=== PATIENT | female | born 1990 | race Caucasian/White ===

== ENCOUNTER 2018-12-17 19:39 | Emergency (ER) | payer OTHER ==
[~2018-12-17] VITALS: Ht 149.9 cm; Wt 52.2 kg
[~2018-12-17 19:39] MED LIST: ATIVAN1 MG PO; PERCOCET 5-3251 EACH PO; VICODIN ES 7.51 EACH PO; VISTARIL 25 MG25 M1 PO
[2018-12-17 19:50] VITALS: BP 131/77
[2018-12-17] MEDS ORDERED: XANAX1 MG PO (19:57)
[2018-12-17] MEDS ORDERED: ADDERALL 10 MG10 MG PO (19:58)
[2018-12-17] MEDS ORDERED: IBUPROFEN 400400 M2 PO (20:59)
== END 2018-12-17 22:02 | disposition home or self-care (01) ==
LOC: ER 19:39
DX: G89.29 Other chronic pain (principal); M54.6 Pain in thoracic spine; J02.9 Acute pharyngitis, unspecified; B33.8 Other specified viral diseases; F41.9 Anxiety disorder, unspecified; J45.909 Unspecified asthma, uncomplicated; F17.210 Nicotine dependence, cigarettes, uncomplicated; Z88.0 Allergy status to penicillin; Z88.6 Allergy status to analgesic agent

== ENCOUNTER 2020-01-16 06:35 | Emergency (ER) | payer OTHER ==
[~2020-01-16] VITALS: Ht 149.9 cm; Wt 59.0 kg
[~2020-01-16 06:35] MED LIST changes: +ADDERALL 10 MG10 MG PO; +IBUPROFEN 400400 M2 PO; +XANAX1 MG PO
[2020-01-16] MEDS ORDERED: PERCOCET 5-3251 EACH PO (09:29)
[2020-01-16] MEDS ORDERED: VALIUM5 MG PO (09:36)
[2020-01-16 09:39] LABS: URINE BILIRUBIN NEGATIVE (Negative); URINE BLOOD 1+ (Negative); URINE CLARITY CLOUDY; URINE COLOR YELLOW; URINE GLUCOSE-RANDOM* NEGATIVE (Negative); URINE KETONES NEGATIVE (Negative); URINE LEUKOCYTES-REFLEX NEGATIVE (Negative); URINE NITRITE-REFLEX NEGATIVE (Negative); URINE PROTEIN (DIPSTICK) NEGATIVE (Negative); URINE SPECIFIC GRAVITY >= 1.030 (1.005-1.035); URINE UROBILINOGEN 0.2 E.U./dl (0.2-1.0)
[2020-01-16 09:51] LABS: AMORPHOUS URATES Moderate /LPF (None Seen); BACTERIA-REFLEX 1-9 Few /HPF (None Seen); CASTS None Seen /LPF (None Seen); MUCUS 0-3 Light strn/LPF (None Seen); SQUAMOUS 4-10 Moderate /LPF (0-3); URINE RBC 0-2 Rare /HPF (0-2); URINE WBC-REFLEX 0-5 Rare /HPF (0-5)
[2020-01-16 10:05] VITALS: BP 111/70
[2020-01-17 02:07] LABS: HIV ANTIBODY Non Reactive (Non Reactive)
[2020-01-17 14:08] LABS: HSV 2 IgG 6.27 index (0.00-0.90)
[2020-01-19 22:07] LABS: SYPHILIS AB Non Reactive (Non Reactive)
--- NOTE | 2020-01-20 01:02 | NUR ---
PATIENT CALLED THIS ER REGARDING HER TEST RESULTS AFTER RECEIVING A VOICEMAIL. WHEN PATIENT LOOKED UP IN CALL LOG, HER TEST RESULTS FOR CHLAMYDIA AND GONORRHEA WERE NEGATIVE. PATIENT ENDED PHONE CALL. UPON LOOKING INTO CHART, PATIENT HAS POSITIVE TEST RESULTS FOR HERPES. CALLED CELL PHONE NUMBER LISTED IN ADMISSION DEMOGRAPHICS AND LEFT MESSAGE FOR PATIENT TO RETURN PHONE CALL. AWAITING PATIENT TO CALL BACK.
== END 2020-01-16 10:05 | disposition home or self-care (01) ==
LOC: ER 06:35
PROVIDERS: Emergency Medicine Emergency Medical Services
DX: M54.5 Low back pain (principal); Z20.2 Contact with and (suspected) exposure to infections with a predominantly sexual mode of transmission; N93.9 Abnormal uterine and vaginal bleeding, unspecified; F41.9 Anxiety disorder, unspecified; J45.909 Unspecified asthma, uncomplicated; Z79.899 Other long term (current) drug therapy; Z88.6 Allergy status to analgesic agent; Z88.8 Allergy status to other drugs, medicaments and biological substances; Z88.0 Allergy status to penicillin; V89.2XXA Person injured in unspecified motor-vehicle accident, traffic, initial encounter; Y93.I9 Activity, other involving external motion; Y92.410 Unspecified street and highway as the place of occurrence of the external cause; Y99.8 Other external cause status

== ENCOUNTER 2020-05-06 05:06 | Emergency (ER) | payer OTHER ==
[~2020-05-06] VITALS: Ht 149.9 cm; Wt 59.0 kg
[~2020-05-06 05:06] MED LIST changes: +VALIUM5 MG PO
[2020-05-06 06:14] LABS: BASOPHILS 0.4 % (0.0-2.0); EOSINOPHILS 1.7 % (0.0-3.0); HEMATOCRIT 34.8 % (37.0-47.0); HEMOGLOBIN 11.7 gm/dL (12.0-15.0); LYMPHOCYTES 13.5 % (24.0-44.0); MCH 30.2 pg (26.0-34.0); MCHC 33.5 g/dL (28.0-37.0); MONOCYTES 5.8 % (1.0-8.0); PLATELET COUNT 285 thou/uL (150-400); POLYS 78.6 % (36.0-66.0); RBC 3.86 mil/uL (4.20-5.00); RDW 13.4 % (10.5-14.5); WBC 12.7 thou/uL (4.0-11.0)
[2020-05-06 06:22] LABS: AMP/METHAMP POSITIVE (Negative); BARBITURATES Negative (Negative); BENZODIAZEPINES POSITIVE (Negative); COCAINE Negative (Negative); METHADONE Negative (Negative); OPIATES Negative (Negative); PCP Negative (Negative)
[2020-05-06 06:25] LABS: CALCIUM 8.3 mg/dL (8.5-10.1); CREATININE 0.5 mg/dL (0.6-1.0); POTASSIUM 3.6 mmol/L (3.5-5.1)
[2020-05-06 06:55] LABS: URINE BILIRUBIN NEGATIVE (Negative); URINE BLOOD NEGATIVE (Negative); URINE CLARITY SL CLOUDY; URINE COLOR YELLOW; URINE GLUCOSE-RANDOM* NEGATIVE (Negative); URINE KETONES NEGATIVE (Negative); URINE LEUKOCYTES-REFLEX NEGATIVE (Negative); URINE NITRITE-REFLEX NEGATIVE (Negative); URINE PROTEIN (DIPSTICK) 1+ (Negative); URINE SPECIFIC GRAVITY >= 1.030 (1.005-1.035); URINE UROBILINOGEN 0.2 E.U./dl (0.2-1.0)
[2020-05-06 06:56] LABS: BACTERIA-REFLEX 1-9 Few /HPF (None Seen); COARSE GRANULAR CASTS 0-3 Few /LPF (None Seen); CRYSTALS None Seen /LPF (None Seen); HYALINE CASTS 0-3 Few /LPF (None Seen); MUCUS 4-6 Moderate strn/LPF (None Seen); SQUAMOUS 4-10 Moderate /LPF (0-3); URINE RBC 3-10 Few /HPF (0-2); URINE WBC-REFLEX 0-5 Rare /HPF (0-5)
[2020-05-06] MEDS ORDERED: TYLENOL325 M1 PO (07:35)
[2020-05-06 07:47] VITALS: BP 121/78
== END 2020-05-06 07:59 | disposition home or self-care (01) ==
LOC: ER 05:06
PROVIDERS: Emergency Medicine
DX: O9A.211 Injury, poisoning and certain other consequences of external causes complicating pregnancy, first trimester (principal); S91.112A Laceration without foreign body of left great toe without damage to nail, initial encounter; M54.6 Pain in thoracic spine; M54.5 Low back pain; O99.341 Other mental disorders complicating pregnancy, first trimester; F41.9 Anxiety disorder, unspecified; O99.511 Diseases of the respiratory system complicating pregnancy, first trimester; J45.909 Unspecified asthma, uncomplicated; Z3A.08 8 weeks gestation of pregnancy; Z88.6 Allergy status to analgesic agent; Z88.8 Allergy status to other drugs, medicaments and biological substances; Z88.0 Allergy status to penicillin; Z79.899 Other long term (current) drug therapy; Y04.2XXA Assault by strike against or bumped into by another person, initial encounter; Y93.89 Activity, other specified; Y92.098 Other place in other non-institutional residence as the place of occurrence of the external cause; Y99.8 Other external cause status

== ENCOUNTER 2020-05-11 22:51 | Emergency (ER) | payer OTHER ==
[~2020-05-11] VITALS: Ht 149.9 cm; Wt 59.0 kg
[~2020-05-11 22:51] MED LIST changes: +TYLENOL325 M1 PO
[2020-05-12 00:35] LABS: HEMATOCRIT 35.9 % (37.0-47.0); HEMOGLOBIN 12.1 gm/dL (12.0-15.0); MCH 30.7 pg (26.0-34.0); MCHC 33.8 g/dL (28.0-37.0); MCV 90.8 fL (80.0-100.0); RBC 3.96 mil/uL (4.20-5.00); RDW 13.5 % (10.5-14.5); WBC 13.6 thou/uL (4.0-11.0)
[2020-05-12 00:45] LABS: CALCIUM 8.2 mg/dL (8.5-10.1); CREATININE 0.5 mg/dL (0.6-1.0); POTASSIUM 3.6 mmol/L (3.5-5.1)
[2020-05-12 01:39] VITALS: BP 112/42
== END 2020-05-12 02:13 | disposition home or self-care (01) ==
LOC: ER 22:51
PROVIDERS: Emergency Medicine
DX: O46.91 Antepartum hemorrhage, unspecified, first trimester (principal); O99.511 Diseases of the respiratory system complicating pregnancy, first trimester; J45.909 Unspecified asthma, uncomplicated; O99.341 Other mental disorders complicating pregnancy, first trimester; F41.9 Anxiety disorder, unspecified; O99.331 Smoking (tobacco) complicating pregnancy, first trimester; F17.210 Nicotine dependence, cigarettes, uncomplicated; Z3A.09 9 weeks gestation of pregnancy; Z79.899 Other long term (current) drug therapy; Z88.6 Allergy status to analgesic agent; Z88.8 Allergy status to other drugs, medicaments and biological substances; Z88.0 Allergy status to penicillin

== ENCOUNTER 2020-05-26 17:40 | Emergency (ER) | payer OTHER ==
[~2020-05-26] VITALS: Ht 149.9 cm; Wt 59.0 kg
[2020-05-26] MEDS ORDERED: PNV 29-1 TABLE1 EACH PO (17:54)
[2020-05-26] MEDS ORDERED: RISPERDAL0.5 MG PO (17:55)
[2020-05-26 18:33] LABS: ABSOLUTE NEUTROPHILS 6.7 thou/uL (1.4-8.2); BASOPHILS 0.5 % (0.0-2.0); HEMATOCRIT 31.8 % (37.0-47.0); HEMOGLOBIN 11.1 gm/dL (12.0-15.0); LYMPHOCYTES 22.6 % (24.0-44.0); MCH 31.3 pg (26.0-34.0); MCHC 34.9 g/dL (28.0-37.0); MCV 89.7 fL (80.0-100.0); MONOCYTES 5.4 % (1.0-8.0); PLATELET COUNT 264 thou/uL (150-400); POLYS 67.5 % (36.0-66.0); RBC 3.55 mil/uL (4.20-5.00); RDW 13.5 % (10.5-14.5); WBC 9.9 thou/uL (4.0-11.0)
[2020-05-26 19:49] LABS: URINE BILIRUBIN NEGATIVE (Negative); URINE BLOOD 3+ (Negative); URINE COLOR YELLOW; URINE GLUCOSE-RANDOM* NEGATIVE (Negative); URINE KETONES NEGATIVE (Negative); URINE NITRITE-REFLEX NEGATIVE (Negative); URINE PROTEIN (DIPSTICK) NEGATIVE (Negative); URINE SPECIFIC GRAVITY >= 1.030 (1.005-1.035); URINE UROBILINOGEN 0.2 E.U./dl (0.2-1.0)
[2020-05-26 19:51] LABS: URINE CLARITY HAZY; URINE LEUKOCYTES-REFLEX 1+ (Negative)
[2020-05-26 19:55] LABS: SQUAMOUS >10 Many /LPF (0-3); URINE WBC-REFLEX 0-5 Rare /HPF (0-5)
[2020-05-26] MEDS ORDERED: KEFLEX500 M1 PO (19:55)
[2020-05-26] MEDS ORDERED: LIDOCAINE PAIN1 EACH TOP (19:55)
[2020-05-26 19:56] LABS: BACTERIA-REFLEX >30 Many /HPF (None Seen); CASTS None Seen /LPF (None Seen); CRYSTALS None Seen /LPF (None Seen); URINE RBC 3-10 Few /HPF (0-2)
[2020-05-26 20:04] VITALS: BP 122/74
== END 2020-05-26 20:04 | disposition home or self-care (01) ==
LOC: ER 17:40
PROVIDERS: Emergency Medicine; Physician Assistant
DX: O46.91 Antepartum hemorrhage, unspecified, first trimester (principal); O23.41 Unspecified infection of urinary tract in pregnancy, first trimester; O26.891 Other specified pregnancy related conditions, first trimester; R07.81 Pleurodynia; M54.6 Pain in thoracic spine; O99.511 Diseases of the respiratory system complicating pregnancy, first trimester; J45.909 Unspecified asthma, uncomplicated; O99.341 Other mental disorders complicating pregnancy, first trimester; F41.9 Anxiety disorder, unspecified; O99.331 Smoking (tobacco) complicating pregnancy, first trimester; F17.210 Nicotine dependence, cigarettes, uncomplicated; Z3A.11 11 weeks gestation of pregnancy; Z79.899 Other long term (current) drug therapy; Z88.6 Allergy status to analgesic agent; Z88.0 Allergy status to penicillin

== ENCOUNTER → 2020-11-15 | Emergency (ER) | payer OTHER ==
[~2020-11-15] VITALS: Ht 149.9 cm; Wt 70.3 kg
[~2020-11-15] MED LIST changes: +KEFLEX500 M1 PO; +LIDOCAINE PAIN1 EACH TOP; +PNV 29-1 TABLE1 EACH PO; +RISPERDAL0.5 MG PO
[2020-11-15 14:26] VITALS: BP 150/108
[2020-11-15 14:38] LABS: URINE BILIRUBIN NEGATIVE (Negative); URINE BLOOD NEGATIVE (Negative); URINE CLARITY SL CLOUDY; URINE COLOR YELLOW; URINE GLUCOSE-RANDOM* NEGATIVE (Negative); URINE KETONES NEGATIVE (Negative); URINE NITRITE-REFLEX NEGATIVE (Negative); URINE PROTEIN (DIPSTICK) TRACE (Negative); URINE SPECIFIC GRAVITY 1.025 (1.005-1.035); URINE UROBILINOGEN 0.2 E.U./dl (0.2-1.0)
[2020-11-15 14:42] LABS: URINE LEUKOCYTES-REFLEX 1+ (Negative)
[2020-11-15 15:00] LABS: SQUAMOUS >10 Many /LPF (0-3); URINE WBC-REFLEX 6-15 Few /HPF (0-5)
[2020-11-15 15:01] LABS: BACTERIA-REFLEX >30 Many /HPF (None Seen); CASTS None Seen /LPF (None Seen); URINE RBC None Seen /HPF (0-2)
[2020-11-15 15:02] LABS: CRYSTALS None Seen /LPF (None Seen)
== END ==
LOC: ER 14:23
PROVIDERS: Emergency Medicine
DX: O16.3 Unspecified maternal hypertension, third trimester (principal); O99.513 Diseases of the respiratory system complicating pregnancy, third trimester; J45.909 Unspecified asthma, uncomplicated; Z79.899 Other long term (current) drug therapy; Z88.0 Allergy status to penicillin; Z88.8 Allergy status to other drugs, medicaments and biological substances; Z3A.37 37 weeks gestation of pregnancy

== ENCOUNTER 2021-05-12 01:08 | Emergency (ER) | payer OTHER ==
[~2021-05-12] VITALS: Ht 149.9 cm; Wt 64.9 kg
[2021-05-12] MEDS ORDERED: ALPRAZOLAM XR3 MG PO (01:17)
[2021-05-12 02:45] VITALS: BP 118/81
== END 2021-05-12 02:45 | disposition left against medical advice (07) ==
LOC: ER 01:08
DX: S24.152A Other incomplete lesion at T2-T6 level of thoracic spinal cord, initial encounter (principal); F41.9 Anxiety disorder, unspecified; J45.909 Unspecified asthma, uncomplicated; Z79.899 Other long term (current) drug therapy; Z88.1 Allergy status to other antibiotic agents; Z88.0 Allergy status to penicillin; Z88.5 Allergy status to narcotic agent; Z88.6 Allergy status to analgesic agent; Z88.8 Allergy status to other drugs, medicaments and biological substances; Y08.89XA Assault by other specified means, initial encounter; Y93.89 Activity, other specified; Y92.89 Other specified places as the place of occurrence of the external cause; Y99.8 Other external cause status